=== PATIENT | male | born 1940 | race Hispanic/Latino ===

== ENCOUNTER 2017-04-28 12:38 | Inpatient (IN) | payer OTHER ==
[~2017-04-28] VITALS: Ht 177.8 cm; Wt 79.4 kg
[2017-04-28 14:08] LABS: BASOPHILS % (AUTO) 0.4 % (0.0-5.0); EOSINOPHILS % (AUTO) 0.1 % (0.0-8.0); LYMPHOCYTES % (AUTO) 12.3 % (21.0-51.0); MEAN CORPUSCULAR HEMOGLOBIN 30.2 pg (27.0-33.0); MEAN CORPUSCULAR HGB CONC 33.8 g/dL (32.0-36.0); MEAN CORPUSCULAR VOLUME 89.3 fL (79-99); MONOCYTES % (AUTO) 5.6 % (3.0-13.0); NEUTROPHILS % (AUTO) 81.6 % (40.0-77.0); PLATELET COUNT (AUTO) 255 K/uL (130-400); RED BLOOD CELL COUNT(AUTO) 4.59 MIL/uL (4.50-6.20); RED CELL DISTRIBUTION WIDTH 14.2 % (11.0-15.5); WHITE BLOOD COUNT (AUTO) 15.7 K/uL (4.8-10.8)
[2017-04-28 14:09] LABS: BILIRUBIN,URINE Negative (NEGATIVE); COLOR,URINE Dark Yellow (YELLOW); GLUCOSE, URINE (UA) Negative (NEGATIVE); KETONES,URINE Negative (NEGATIVE); LEUKOCYTE ESTERASE ,URINE Large (NEGATIVE); NITRATE,URINE Negative (NEGATIVE); OCCULT BLOOD,URINE Small (NEGATIVE); PH,URINE 6.5 (5.0-8.0); PROTEIN,URINE Negative (NEGATIVE); UROBILINOGEN,URINE 0.2 mg/dL (0.2-1.0)
[2017-04-28 14:19] LABS: CREATININE 1.1 mg/dL (0.5-1.5); POTASSIUM 3.5 mmol/L (3.5-5.1)
[2017-04-28 14:24] LABS: ALBUMIN 3.3 g/dL (3.5-5.0); BILIRUBIN,TOTAL 0.5 mg/dL (0.2-1.0); TOTAL PROTEIN, SERUM 7.3 g/dL (6.0-8.3)
[2017-04-28 14:45] LABS: APPEARANCE,URINE SLIGHTLY CLOUDY (CLEAR)
[2017-04-28 14:58] LABS: BACTERIA,URINE Few /HPF (None Seen); WBC,URINE 26-50 /HPF (0-1); YEAST,URINE BUDDING Few /HPF (None Seen)
[2017-04-28 14:59] LABS: SQUAMOUS EPITHELIAL CELL,UR Rare /LPF (0-2)
[2017-04-28] MEDS ORDERED: MEROPENEM 1 GM VIAL ONE (15:40)
[2017-04-28] MEDS ORDERED: SODIUM CHLORIDE 0.9% 1000ML 1,000 ML IV ONE (15:45)
[2017-04-28 17:00] VITALS: BP 156/76
[2017-04-28] MEDS ORDERED: [UNRECOGNIZED DRUG - OTHER] (18:05)
[2017-04-28] MEDS ORDERED: APIX5TAB4 PO (18:05)
[2017-04-28] MEDS ORDERED: DILT120C92 PO (18:08)
[2017-04-28 19:00] VITALS: BP 156/92
[2017-04-28] MEDS ORDERED: ONDANSETRON HCL 4 MG/2 ML VIAL IVP PRN (20:15)
[2017-04-28] MEDS ORDERED: ACETAMINOPHEN 325 MG TAB PO PRN (20:15)
[2017-04-28] MEDS: SODIUM CHLORIDE 0.9% 1000ML 1,000 ML IV SCH (21:03)
[2017-04-28] MEDS: MEROPENEM 500 MG VIAL IVP SCH (21:04)
[2017-04-28 23:00] VITALS: BP 175/85
[2017-04-29] VITALS (7 sets, daily range): BP systolic 138–159; BP diastolic 78–97
[2017-04-29] MEDS ORDERED: HYDRALAZINE HCL 20 MG/ML VIAL IV PRN ×2 (00:30→08:30)
[2017-04-29 04:19] LABS: MEAN CORPUSCULAR HEMOGLOBIN 30.7 pg (27.0-33.0); MEAN CORPUSCULAR HGB CONC 34.6 g/dL (32.0-36.0); MEAN CORPUSCULAR VOLUME 88.6 fL (79-99); NUCLEATED RED BLOOD CELLS 0.1 % (0.0-0.19); PLATELET COUNT (AUTO) 246 K/uL (130-400); RED CELL DISTRIBUTION WIDTH 14.2 % (11.0-15.5); WHITE BLOOD COUNT (AUTO) 13.7 K/uL (4.8-10.8)
[2017-04-29 04:26] LABS: CREATININE 0.9 mg/dL (0.5-1.5)
[2017-04-29] MEDS ORDERED: POTASSIUM CHLORIDE 10% ELIXIR 20 MEQ/15 ML UDCUP PO PRN (05:45)
[2017-04-29] MEDS ORDERED: POTASSIUM CHLORIDE 20MEQ/100ML 100 ML IV PRN (05:45)
[2017-04-29] MEDS ORDERED: LIDOCAINE HCL-MPF 1% 2ML VIAL IVP PRN (05:45)
[2017-04-29] MEDS: MEROPENEM 500 MG VIAL IVP SCH ×3 (06:18→23:17)
[2017-04-29] MEDS: POTASSIUM CHLORIDE 20 MEQ ERTAB PO PRN ×4 (06:19→17:34)
[2017-04-29] MEDS ORDERED: ACETAMINOPHEN 325 MG TAB PO PRN ×2 (08:30)
[2017-04-29] MEDS ORDERED: MAG HYDROX/AL HYDROX/SIMETH ES 30 ML SUSP UDCUP PO PRN (08:30)
[2017-04-29] MEDS ORDERED: NITROGLYCERIN 0.4 MG SL TAB SL PRN (08:30)
[2017-04-29] MEDS ORDERED: ONDANSETRON HCL 4 MG/2 ML VIAL IV PRN (08:30)
[2017-04-29] MEDS ORDERED: GUAIFENESIN-DM 200/20 MG 10 ML PO PRN (08:30)
[2017-04-29] MEDS ORDERED: LACTULOSE 20 GM/30 ML UDCUP PO PRN (08:30)
[2017-04-29] MEDS ORDERED: ACETAMINOPHEN-CODEINE 300/30MG TAB PO PRN ×2 (08:30)
[2017-04-29] MEDS: HYDROCHLOROTHIAZIDE 25 MG TABLET PO SCH (08:50)
[2017-04-29] MEDS: FAMOTIDINE 20MG TAB 20 MG TAB PO SCH ×2 (08:51→21:00)
[2017-04-29] MEDS: LOSARTAN 50 MG TABLET PO SCH (08:51)
[2017-04-29] MEDS: DILTIAZEM HCL 120 MG CAP.SR.24H PO SCH (08:52)
[2017-04-29] MEDS: APIXABAN 5 MG TABLET PO SCH ×2 (08:52→23:17)
[2017-04-29] MEDS: FAMOTIDINE/PF 20 MG/2 ML VIAL IV SCH ×2 (09:00→23:17)
[2017-04-29] MEDS: SODIUM CHLORIDE 0.9% 1000ML 1,000 ML IV SCH (10:35)
[2017-04-29] MEDS ORDERED: LORAZEPAM 0.5 MG TABLET PO ONE (22:45)
[2017-04-30 03:00] VITALS: BP 157/98
[2017-04-30 04:44] LABS: HEMATOCRIT 39.3 % (42-54); MEAN CORPUSCULAR HEMOGLOBIN 30.5 pg (27.0-33.0); MEAN CORPUSCULAR HGB CONC 34.4 g/dL (32.0-36.0); MEAN CORPUSCULAR VOLUME 88.7 fL (79-99); PLATELET COUNT (AUTO) 225 K/uL (130-400); RED BLOOD CELL COUNT(AUTO) 4.43 MIL/uL (4.50-6.20); RED CELL DISTRIBUTION WIDTH 13.9 % (11.0-15.5); WHITE BLOOD COUNT (AUTO) 11.4 K/uL (4.8-10.8)
[2017-04-30 04:56] LABS: CREATININE 1.1 mg/dL (0.5-1.5); POTASSIUM 3.4 mmol/L (3.5-5.1)
[2017-04-30] MEDS: MEROPENEM 500 MG VIAL IVP SCH (06:33)
[2017-04-30] MEDS: POTASSIUM CHLORIDE 20 MEQ ERTAB PO PRN ×2 (06:34→11:16)
[2017-04-30 08:00] VITALS: BP 155/89
[2017-04-30] MEDS: FAMOTIDINE/PF 20 MG/2 ML VIAL IV SCH ×2 (09:00→20:19)
[2017-04-30] MEDS ORDERED: HALOPERIDOL LACTATE 5 MG/ML VIAL IV PRN (09:15)
[2017-04-30] MEDS: APIXABAN 5 MG TABLET PO SCH ×2 (11:14→20:18)
[2017-04-30] MEDS: LOSARTAN 50 MG TABLET PO SCH (11:15)
[2017-04-30] MEDS: HYDROCHLOROTHIAZIDE 25 MG TABLET PO SCH (11:15)
[2017-04-30] MEDS: FAMOTIDINE 20MG TAB 20 MG TAB PO SCH ×2 (11:16→20:18)
[2017-04-30] MEDS: DILTIAZEM HCL 120 MG CAP.SR.24H PO SCH (11:17)
[2017-04-30 12:00] VITALS: BP 154/95
[2017-04-30 16:00] VITALS: BP 154/92
[2017-04-30] MEDS: FLUCONAZOLE 100 MG TAB PO SCH (16:22)
[2017-04-30 19:43] VITALS: BP 154/83
[2017-05-01] VITALS (7 sets, daily range): BP systolic 127–156; BP diastolic 66–92
[2017-05-01 03:32] LABS: HEMATOCRIT 38.8 % (42-54); MEAN CORPUSCULAR HEMOGLOBIN 31.1 pg (27.0-33.0); MEAN CORPUSCULAR HGB CONC 34.9 g/dL (32.0-36.0); MEAN CORPUSCULAR VOLUME 89.1 fL (79-99); NUCLEATED RED BLOOD CELLS 0.1 % (0.0-0.19); PLATELET COUNT (AUTO) 217 K/uL (130-400); RED BLOOD CELL COUNT(AUTO) 4.36 MIL/uL (4.50-6.20); RED CELL DISTRIBUTION WIDTH 13.9 % (11.0-15.5); WHITE BLOOD COUNT (AUTO) 10.8 K/uL (4.8-10.8)
[2017-05-01 03:40] LABS: CREATININE 1.2 mg/dL (0.5-1.5); POTASSIUM 3.6 mmol/L (3.5-5.1)
[2017-05-01] MEDS: HYDROCHLOROTHIAZIDE 25 MG TABLET PO SCH (09:16)
[2017-05-01] MEDS: LOSARTAN 50 MG TABLET PO SCH (09:16)
[2017-05-01] MEDS: DILTIAZEM HCL 120 MG CAP.SR.24H PO SCH (09:16)
[2017-05-01] MEDS: APIXABAN 5 MG TABLET PO SCH ×2 (09:16→20:33)
[2017-05-01] MEDS: FAMOTIDINE 20MG TAB 20 MG TAB PO SCH ×2 (09:16→20:33)
[2017-05-01] MEDS: POTASSIUM CHLORIDE 20 MEQ ERTAB PO PRN ×2 (09:21→17:07)
[2017-05-01] MEDS: FLUCONAZOLE 100 MG TAB PO SCH (17:06)
[2017-05-02 03:30] VITALS: BP 142/82
[2017-05-02 07:00] VITALS: BP_SYST 139; BP_SYST 143; BP_DIAS 73; BP_DIAS 75
[2017-05-02] MEDS: HYDROCHLOROTHIAZIDE 25 MG TABLET PO SCH (09:33)
[2017-05-02] MEDS: APIXABAN 5 MG TABLET PO SCH (09:33)
[2017-05-02] MEDS: LOSARTAN 50 MG TABLET PO SCH (09:33)
[2017-05-02] MEDS: FAMOTIDINE 20MG TAB 20 MG TAB PO SCH (09:33)
[2017-05-02] MEDS: DILTIAZEM HCL 120 MG CAP.SR.24H PO SCH (09:38)
[2017-05-02 11:00] VITALS: BP 137/80
== END 2017-05-02 16:00 | disposition home or self-care (01) | DRG 689 ==
LOC: EDH 12:38 → OBSVTOIN 15:45 → EDHIP 15:45 → 3CH 16:58
PROVIDERS: ADMIT Internal Medicine; ATTEND Internal Medicine
DX: N39.0 Urinary tract infection, site not specified (principal); G93.41 Metabolic encephalopathy; D68.69 Other thrombophilia; I48.2 Chronic atrial fibrillation; E66.9 Obesity, unspecified; R33.9 Retention of urine, unspecified; E87.6 Hypokalemia; I10 Essential (primary) hypertension; Z79.01 Long term (current) use of anticoagulants; Z87.440 Personal history of urinary (tract) infections; Z80.42 Family history of malignant neoplasm of prostate; Z85.46 Personal history of malignant neoplasm of prostate; Z85.830 Personal history of malignant neoplasm of bone; Z86.73 Personal history of transient ischemic attack (TIA), and cerebral infarction without residual deficits; Z28.21 Immunization not carried out because of patient refusal
CPT/HCPCS: 36415; 70450; 71045; 80048; 80053; 81001; 84132; 85025; 85027; 87040; 87088; 87186; A4218; J0360; J2185; J3480; J3490; J7030